=== PATIENT | female | born 1955 | race Caucasian/White ===

== ENCOUNTER 2018-01-24 08:18 | Outpatient (RCR) | payer OTHER | END 2018-02-13 12:03 | disposition home or self-care (01) | LOC: WSOH 08:18 | DX: M25.561 Pain in right knee (principal); M25.551 Pain in right hip; W00.0XXA Fall on same level due to ice and snow, initial encounter; Y92.214 College as the place of occurrence of the external cause; Y99.0 Civilian activity done for income or pay ==

== ENCOUNTER 2018-06-27 15:15 | Outpatient (RCR) | payer BC | END 2018-07-22 | disposition home or self-care (01) | LOC: WSC | DX: M76.01 Gluteal tendinitis, right hip (principal) ==

== ENCOUNTER 2018-08-27 08:15 | Outpatient (RCR) | payer BC | END 2018-11-09 | disposition home or self-care (01) | LOC: WSC | DX: M76.01 Gluteal tendinitis, right hip (principal); M53.3 Sacrococcygeal disorders, not elsewhere classified; M54.5 Low back pain ==

== ENCOUNTER 2018-12-17 08:00 | Outpatient (RCR) | payer BC | END 2019-02-05 | disposition home or self-care (01) | LOC: WSC | DX: M54.2 Cervicalgia (principal); M25.512 Pain in left shoulder; M25.511 Pain in right shoulder ==

== ENCOUNTER 2019-08-26 08:00 | Outpatient (RCR) | payer BC | END 2019-08-27 10:50 | disposition home or self-care (01) | LOC: WSC 08:00 | DX: M54.2 Cervicalgia (principal); M25.512 Pain in left shoulder; M25.511 Pain in right shoulder ==

== ENCOUNTER 2020-04-14 08:46 | Outpatient (RCR) | payer BC | END 2020-07-13 | disposition home or self-care (01) | LOC: WSC | DX: M25.851 Other specified joint disorders, right hip (principal) ==

== ENCOUNTER 2020-06-29 08:15 | Outpatient (RCR) | payer BC | END 2020-09-05 | disposition still patient (30) | LOC: WSC | DX: S29.012A Strain of muscle and tendon of back wall of thorax, initial encounter (principal) ==

== ENCOUNTER 2022-03-21 14:33 | Outpatient (RCR) | payer BC | END 2022-03-22 | LOC: PT.GENESIS | DX: M77.12 Lateral epicondylitis, left elbow (principal); M25.561 Pain in right knee; M25.562 Pain in left knee ==

== ENCOUNTER 2022-11-28 08:26 | Outpatient (RCR) | payer BC | END 2022-12-21 | disposition home or self-care (01) | LOC: PT.GENESIS | DX: M77.12 Lateral epicondylitis, left elbow (principal); S33.5XXD Sprain of ligaments of lumbar spine, subsequent encounter; M25.561 Pain in right knee; M25.562 Pain in left knee; X58.XXXD Exposure to other specified factors, subsequent encounter ==